=== PATIENT | female | born 1990 | race Caucasian/White ===

== ENCOUNTER 2021-07-03 15:34 | Emergency (ER) | payer SELFPAY ==
[~2021-07-03] VITALS: Ht 154.9 cm; Wt 63.5 kg
--- NOTE | 2021-07-03 15:35 | NUR ---
BIBA to bed 12.
[2021-07-03 15:38] VITALS: BP 144/87
--- NOTE | 2021-07-03 15:40 | NUR ---
31 y/o F BIBA from work c/o hand cramps, SOB, nausea. Patient states she was at work feeling normal before experiencing nausea, hand stiffness, pale, dry mouth. Patient provided with soda withotu relief. Denies medications prior to arrival; denies headache, fever, chills, vomiting, diarrhea. SpO2 97% on room air. Denies recent stressors. Pt with bilateral hand contractures, reports 5/10, cramp/constant, non-radiating pain. PMH/Sx/Meds: Denies NKDA
--- NOTE | 2021-07-03 15:40 | NUR ---
Dr. Dobson is evaluating patient at bedside.
[2021-07-03] MEDS ORDERED: NACL 0.9% 1,000 ML IV ONE (15:50)
--- NOTE | 2021-07-03 15:54 | NUR ---
Lab at bedside
[2021-07-03 16:04] LABS: BASOPHILS % (AUTO) 0.4 % (0.0-2.0); EOSINOPHILS # (AUTO) 0.1 K/uL (0-0.4); EOSINOPHILS % (AUTO) 1.9 % (0.0-4.0); HEMATOCRIT 38.4 % (36-48); LYMPHOCYTES # (AUTO) 1.8 K/uL (2.5-16.5); LYMPHOCYTES % (AUTO) 23.6 % (20.5-51.1); MEAN CORPUSCULAR HEMOGLOBIN 31 pg (27-31); MEAN CORPUSCULAR HGB CONC 34 g/dL (33-37); MEAN CORPUSCULAR VOLUME 91.9 fL (80-94); MONOCYTES # (AUTO) 0.3 K/uL (0.8-1.0); MONOCYTES % (AUTO) 4.1 % (1.7-9.3); NEUTROPHILS # (AUTO) 5.3 K/uL (1.8-7.7); PLATELET COUNT (AUTO) 236 K/uL (140-450); RED BLOOD CELL COUNT(AUTO) 4.17 MIL/uL (4.20-5.40); RED CELL DISTRIBUTION WIDTH 12.8 % (11.6-13.7); WHITE BLOOD COUNT (AUTO) 7.5 K/uL (4.8-10.8)
[2021-07-03 16:20] LABS: ALBUMIN 3.9 g/dL (3.4-5.0); ANION GAP 11.5 (8-16); CARBON DIOXIDE 30.6 mmol/L (21-32); POTASSIUM 4.1 mmol/L (3.5-5.1); TOTAL BILIRUBIN 0.2 mg/dL (0.0-1.0)
[2021-07-03 16:57] VITALS: BP 134/98
--- NOTE | 2021-07-03 16:57 | NUR ---
Patient discharged with v/s stable. Written and verbal after care instructions given and explained for Dehydration, Near-syncope, Muscle cramps. Patient verbalized understanding. Ambulatory with steady gait. All questions addressed prior to discharge. Advised to follow up with PMD. Work note provided.
== END 2021-07-03 16:57 | disposition home or self-care (01) ==
LOC: MED 15:34
DX: R55 Syncope and collapse (principal); M62.838 Other muscle spasm; E86.0 Dehydration
CPT/HCPCS: 36415; 80053; 85025; 96360; 99283; J7030

== ENCOUNTER 2021-12-20 11:40 | Emergency (ER) | payer SELFPAY ==
[~2021-12-20] VITALS: Ht 154.9 cm; Wt 60.8 kg
[2021-12-20 12:13] VITALS: BP 136/90
--- NOTE | 2021-12-20 12:16 | NUR ---
WALKED IN C/O SHARP SHOOTING CHEST PAIN ACCOMPANIED BY SOB ONSET 30 MIN. PT ALSO REPORTS FACE NUMBNESS AND B/L HAND CONTRACTION. PT STATES HX HAND CONTRACTION BACK IN JUNE 2021 D/T DEHYDRATION AND SYNCOPE. DENIES FALL OR INJURY. VITALS STABLE. AAOX4, AMBULATORY.
[2021-12-20] MEDS ORDERED: LORazepam 2 MG/ML VIAL IVP ONE (12:25)
[2021-12-20 12:46] VITALS: BP 131/83
--- NOTE | 2021-12-20 13:00 | NUR ---
HANDS ARE NO LONGER CONTRACTED AND STATES DECREASED PAIN AND DISCOMFORT. ERPA AWARE
[2021-12-20] MEDS ORDERED: MECLIZINE 25 MG TAB PO ONE (13:40)
[2021-12-20 14:18] LABS: ALBUMIN 4.1 g/dL (3.4-5.0); ANION GAP 13.3 (8-16); CARBON DIOXIDE 26.5 mmol/L (21-32); CREATININE 0.8 mg/dL (0.6-1.3); POTASSIUM 3.8 mmol/L (3.5-5.1); TOTAL BILIRUBIN 0.8 mg/dL (0.0-1.0)
[2021-12-20] MEDS ORDERED: IBUP-2213 PO (14:23)
[2021-12-20] MEDS ORDERED: CEPH-588 PO (14:23)
[2021-12-20] MEDS ORDERED: HYDR25CA1 PO (14:23)
--- NOTE | 2021-12-20 14:45 | NUR ---
Patient discharged with v/s stable. Written and verbal after care instructions given and explained. Patient verbalized understanding. Ambulatory with steady gait. All questions addressed prior to discharge. Advised to follow up with PMD.
--- NOTE | 2021-12-23 18:24 | NUR ---
LATE ENTRY, RECEIVED POSITIVE URINE CULTURE RESULT. FORM GIVEN TO DR KOCH, TREATMENT APPROPRIATE. FORM PLACED IN BINDER
== END 2021-12-20 14:45 | disposition home or self-care (01) ==
LOC: MED 11:40
DX: R07.89 Other chest pain (principal); F41.9 Anxiety disorder, unspecified
CPT/HCPCS: 36415; 71045; 80053; 81002; 81025; 87086; 93005; 96374; 99285; J2060; J8597; Q0092; Q0163